=== PATIENT | female | born 1945 | race Caucasian/White ===

== ENCOUNTER 2019-09-16 13:04 | Outpatient (RCR) | payer MEDICARE, OTHER, SELFPAY | END 2019-09-29 00:01 | LOC: WOUND 13:04 | PROVIDERS: Family Provider Family Medicine; Visit Provider Nurse Practitioner Family | DX: I87.2 Venous insufficiency (chronic) (peripheral) (principal); L97.812 Non-pressure chronic ulcer of other part of right lower leg with fat layer exposed; I96 Gangrene, not elsewhere classified | CPT/HCPCS: 11042 ×2; 87070; 87077; 87176; 87186 ×3; 87205; G0463 ==

== ENCOUNTER 2019-10-21 08:13 | Outpatient (RCR) | payer MEDICARE, OTHER, SELFPAY | END 2019-10-30 23:59 | disposition home or self-care (01) | LOC: WOUND 08:13 | PROVIDERS: Family Provider Family Medicine; PCP Family Medicine; Visit Provider Nurse Practitioner Family | DX: I87.2 Venous insufficiency (chronic) (peripheral) (principal); L97.812 Non-pressure chronic ulcer of other part of right lower leg with fat layer exposed | CPT/HCPCS: 11042 ==

== ENCOUNTER → 2019-10-28 08:26 | Outpatient (BNVA) | payer MEDICARE, OTHER, SELFPAY | PROVIDERS: Family Provider Family Medicine; PCP Family Medicine; Referring Provider Surgery; Visit Provider Internal Medicine Rheumatology | DX: M19.90 Unspecified osteoarthritis, unspecified site (principal); M35.3 Polymyalgia rheumatica; L98.9 Disorder of the skin and subcutaneous tissue, unspecified; L98.492 Non-pressure chronic ulcer of skin of other sites with fat layer exposed; Z71.89 Other specified counseling | CPT/HCPCS: 99204; 99205 ==

== ENCOUNTER 2019-10-28 10:56 | Outpatient (CLI) | payer MEDICARE, OTHER, SELFPAY ==
--- NOTE | 2019-10-28 11:10 | XR_ITS ---
WS: [id number] LEFT HAND: 3 VIEW(S) TECHNIQUE: PA, oblique and lateral. HISTORY: inflammatory arthritis COMPARISON: None available. No acute fracture or dislocation. Very mild narrowing of the interphalangeal joints. No periarticular osteopenia. No subluxation or ero sions. XR/XR hand LT min 3V* [id number] IMPRESSION: Mild LEFT hand osteoarthritis.
--- NOTE | 2019-10-28 11:10 | XR_ITS ---
WS: [id number] RIGHT SHOULDER: 1 VIEW(S) TECHNIQUE: AP view HISTORY: inflammatory arthritis COMPARISON: None available. Very mild narrowing of the glenohumeral joint and AC joint. No erosions. No fracture. No dislocation. XR/XR shoulder RT 1V [id number] IMPRESSION: Mild AC joint and glenohumeral joint arthritis.
--- NOTE | 2019-10-28 11:10 | XR_ITS ---
WS: [id number] RIGHT FOOT: 3 VIEW(S) TECHNIQUE: PA, oblique and lateral. HISTORY: inflammatory arthritis COMPARISON: None available. No acute fracture or dislocation. Mild hallux valgus. Mild thickening of the fourth and fifth metatarsals, likely from old fractures. M ild subluxation at the second metatarsophalangeal joint space. Suspect early erosions involving the s econd metatarsal head. Hammertoe deformities. Moderate size calcaneal spur. XR/XR foot RT min 3V* [id number] IMPRESSION: 1. Hallux valgus. 2. Erosions at the second metatarsal head and mild subluxation at the second m etatarsophalangeal joint. Can be seen with inflammatory arthritis.
--- NOTE | 2019-10-28 11:10 | XR_ITS ---
WS: [id number] LEFT FOOT: 3 VIEW(S) TECHNIQUE: PA, oblique and lateral. HISTORY: inflammatory arthritis COMPARISON: None available. No acute fracture or dislocation. Erosion along the lateral second metatarsal head. Several hammertoe deformities. Moderate-sized calcaneal spur. XR/XR foot LT min 3V* [id number] IMPRESSION: Second metatarsal head erosion can be seen with inflammatory arthritis.
--- NOTE | 2019-10-28 11:10 | XR_ITS ---
WS: [id number] LEFT SHOULDER: 1 VIEW(S) TECHNIQUE: AP view. HISTORY: inflammatory arthritis COMPARISON: None available. No fracture or dislocation or soft tissue abnormality. Moderate narrowing of the AC joint with small hypertrophic osteophytes. Calcific density lateral to t he humeral head. Mild glenohumeral joint narrowing. Mild atherosclerosis aorta. XR/XR shoulder LT 1V [id number] IMPRESSION: 1. Osteoarthritis at the AC joint and glenohumeral joint. 2. Calcific tendinitis.
--- NOTE | 2019-10-28 11:10 | XR_ITS ---
WS: [id number] CHEST 2 VIEWS HISTORY: inflammatory arthritis COMPARISON: None available. Lungs: Clear with no abnormality. No pleural effusion or pneumothorax. Cardiac size: Normal. Mediastinum/Aorta: Mild atherosclerosis aorta. Benign granuloma noted on the lateral projection in th e anterior mediastinum. Bones: Mild increase in thoracic kyphosis and osteopenia. XR/XR chest 2V* [id number] IMPRESSION: No acute cardiopulmonary disease. Mild atherosclerosis aorta.
--- NOTE | 2019-10-28 11:10 | XR_ITS ---
WS: [id number] RIGHT HAND: 3 VIEW(S) TECHNIQUE: PA, oblique and lateral. HISTORY: inflammatory arthritis COMPARISON: None available. No acute fracture or dislocation. Mild to moderate interphalangeal joint space narrowing. Most significant involving the DIP joint of t he fifth finger. No periarticular osteopenia. No subluxation. No definite erosions. XR/XR hand RT min 3V* [id number] IMPRESSION: Changes most consistent with osteoarthritis at the interphalangeal joints.
== END 2019-10-28 10:57 | disposition home or self-care (01) ==
LOC: RADWPI 11:06
PROVIDERS: Family Provider Family Medicine; PCP Family Medicine; Visit Provider Internal Medicine Rheumatology
DX: M75.32 Calcific tendinitis of left shoulder (principal); M19.042 Primary osteoarthritis, left hand; M20.11 Hallux valgus (acquired), right foot; M85.872 Other specified disorders of bone density and structure, left ankle and foot; I70.0 Atherosclerosis of aorta
CPT/HCPCS: 71046; 73020; 73130; 73630

== ENCOUNTER 2019-11-12 08:32 | Outpatient (RCR) | payer MEDICARE, OTHER, SELFPAY | END 2019-11-28 23:59 | disposition home or self-care (01) | LOC: WOUND 08:32 | PROVIDERS: Family Provider Family Medicine; PCP Family Medicine; Visit Provider Nurse Practitioner Family | DX: I87.2 Venous insufficiency (chronic) (peripheral) (principal); L97.812 Non-pressure chronic ulcer of other part of right lower leg with fat layer exposed | CPT/HCPCS: 99215; G0463 ==

== ENCOUNTER → 2019-11-25 10:01 | Outpatient (BNVA) | payer MEDICARE, OTHER, SELFPAY | PROVIDERS: Family Provider Family Medicine; PCP Family Medicine; Visit Provider Internal Medicine Rheumatology | DX: M19.90 Unspecified osteoarthritis, unspecified site (principal); Z79.899 Other long term (current) drug therapy; Z11.59 Encounter for screening for other viral diseases | CPT/HCPCS: 85025 ==

== ENCOUNTER 2019-11-25 11:22 | Emergency (ER) | payer MEDICARE, OTHER, SELFPAY ==
[2019-11-25 11:26] VITALS: BP 152/84; PULSE 61; RESP 16; TEMP 37; O2SAT 98; BMI 28.3
--- NOTE | 2019-11-25 11:26 | ECG_ITS ---
Measurements Intervals [place] Rate: 53 P: 31 AK: 176 QRS: -32 QRSD: 108 T: 18 QT: 433 QTc: 410 SINUS BRADYCARDIA LEFT AXIS DEVIATION [QRS AXIS < -30] PATTERN CONSISTENT WITH PULMONARY DISEASE MODERATE VOLTAGE CRITERIA FOR LVH, CONSIDER NORMAL VARIANT [MEETS CRITERIA IN ON ONE OF: R(aVL), S(V1), R(V5), R(V5/V6)+S(V1)] No previous ECG available for comparison Electronically Signed On 11-25-2019 15:18:56 LEAD LAYING AND GLUING MACHINE OPERATOR by Avelino Mcwilliams M.D. [email or web address] praveena
--- NOTE | 2019-11-25 11:41 | ED_ITS ---
Entered by [id number], acting as scribe for Triny Connor MD Nov 25, 2019 11:22 HPI - General Adult General: Chief complaint: Shortness of Breath/Dyspnea Stated complaint: SYNCOPE/SEIZURE Time Seen by Provider: 11/25/19 11:41 PFS ED PFSH: Medical History (Updated 10/29/19 @ 00:03 by Wei Hare MD) CVA (cerebral vascular accident) Immunization counseling Inflammatory arthritis PMR (polymyalgia rheumatica) Skin lesion Skin ulcer Surgical History History of hysterectomy Social History Smoking and tobacco status: never smoked Alcohol intake: never Course Vital Signs: Vital signs: Vital Signs Temperature 98.6 F 11/25/19 11:26 Pulse Rate 61 11/25/19 11:26 Respiratory Rate 16 11/25/19 11:26 Blood Pressure 152/84 11/25/19 11:26 Pulse Oximetry 97 11/25/19 11:44 MDM - General Adult Lab Data: Labs: Lab Results 11/25/19 11/25/19 Range/Units 11:15 11:15 WBC 8.2 (4.0-10.0) 10^3/ uL RBC 4.60 (4.1-5.3) 10^6/u L Hgb 14.1 (11.5-15.3) g/dL Hct 43.5 (37.0-47.0) % MCV 94.6 (81-99) fL MCH 30.7 (28.0-34.0) pg MCHC 32.4 (30.0-36.0) g/dL RDW 13.2 (12.1-15.1) % Plt Count 312 (130-400) 10^3/c mm MPV 9.7 (7.4-10.4) fL Sodium 137 (136-145) mmol/L Potassium 3.9 (3.5-5.1) mmol/L Chloride 101 (98-107) mmol/L Carbon Dioxide 23 (22-29) mmol/L Anion Gap 16.9 (5-19) BUN 12 (8-23) mg/dL Creatinine 0.8 (0.5-0.9) mg/dL Glucose 99 (65-115) mg/dL Calcium 10.2 (8.5-10.5) mg/dL Total Bilirubin 0.4 (0.15-1.2) mg/dL AST 16 (0-32) U/L ALT 16 (0-33) U/L Alkaline Phosphata se 77 (35-105) IU/L Total Protein 7.2 (6.6-8.7) g/dL Albumin 4.3 (3.5-5.2) g/dL Globulin 2.9 (1.3-4.6) g/dL Discharge Plan Discharge Prescriptions: No Action prednisone 10 mg tablet 10 mg PO QDAY Qty: 30 RF: 0 methylprednisolone 32 mg tablet 32 mg PO DAILY RF: 0 doxepin 10 mg Capsule 10 mg PO Q8H PRN (Reason: Itching) RF: 0 Coding Level of Care Code ED Hotbed Operator for Chg Fwd The documentation recorded by the jojoibbessy, [id number], accurately reflects the service I personally performed and the decisions made by Nikolas julio Megan, MD Nov 25, 2019 11:22
--- NOTE | 2019-11-25 11:42 | ED_ITS ---
Entered by Mena Boudreaux, acting as scribe for Triny Connor MD HPI - General Adult General: Chief complaint: Shortness of Breath/Dyspnea Stated complaint: SYNCOPE/SEIZURE Time Seen by Provider: 11/25/19 11:41 Source: patient, family and EMS Mode of arrival: EMS Limitations: no limitations History of Present Illness: HPI narrative: 74 yo female presents with syncope episode. pt states she has had the flu the past few days. pt was at the Rheumatology clinic getting her blood drawn When she passed out while sitting and her head slumped to the side. witnessed it. No injury from this. complaint: syncope Onset (ago): hour(s) (just scow captain) Radiation: non-radiation Severity: moderate Pain Consistency: constant Relieving factors: none Exacerbating factors: other (when they was taking blood at Rheumatology Clinic) Associated symptoms: Reports nausea, rash (for a year), short of breath, syncope and weakness; Deny dyspnea or headache(s) Treatments prior to arrival: other (fluids by EMS) Review of Systems General: Reports: 10 or more systems reviewed and unremarkable except in HPI and below Const: Denies: fever or chills Eyes: Denies: change in vision ENMT: Denies: throat pain Card: Reports: syncope Resp: Denies: shortness of breath GI: Reports: nausea : Denies: difficulty urinating Musc: Denies: muscle weakness Skin/Breast: Reports: rash (for a year) Neuro: Denies: headache Psych: Denies: hopelessness or suicidal ideation Endo: Denies: excessive urination Sumanth/Lymph: Denies: easy bruising or easy bleeding All/Imm: Denies: hives [facility] ED PFSH: Medical History (Updated 11/25/19 @ 13:17 by Triny Connor MD) CVA (cerebral vascular accident) Immunization counseling Inflammatory arthritis PMR (polymyalgia rheumatica) Skin lesion Skin ulcer Surgical History History of hysterectomy Social History Smoking and tobacco status: never smoked Alcohol intake: never Physical Exam Const: COMMON NORMALS: no apparent distress, average body habitus, oriented x3, no limitations, healthy appearing, alert and well nourished HENMT: COMMON NORMALS: normocephalic, external ears normal and external nose normal HEAD & SCALP: normocephalic NOSE: external nose normal EXTERNAL EAR: Yes external ears normal MOUTH: oral and palatal mucosa normal THROAT: posterior oropharynx normal Eye: COMMON NORMALS: PERRL, EOMs intact bilaterally, conjunctivae normal and no scleral icterus CONJUNCTIVA: Yes conjunctivae normal PUPIL: Yes PERRL Neck/C-Spine: COMMON NORMALS: full ROM, no lymphadenopathy, supple, no meningeal signs and no JVD CERVICAL SPINE: Yes cervical ROM normal Lymph: LYMPHATIC: no lymphadenopathy noted Chest: COMMONS NORMALS: inspection of chest normal Resp: COMMON NORMALS: normal respiratory effort, no retractions, no use of accessory muscles and clear to auscultation bilaterally AUSCULTATION: clear to auscultation bilaterally Cardio: COMMON NORMALS: no JVD, regular rate, regular rhythm, no gallops, no clicks, no murmurs and no rub RATE: regular rate RHYTHM: regular rhythm GI: COMMON NORMALS: normal to inspection, nondistended, normoactive bowel sounds, soft to palpation and non-tender AUSCULTATION: Yes normoactive bowel sounds PALPATION: Yes soft : COMMON NORMALS: Yes no CVA tenderness BLADDER/KIDNEY EXAM: Yes no CVA tenderness Back/Pelvis: COMMON NORMALS: no CVA tenderness Extremity: COMMON NORMALS: normal to inspection Neuro: COMMON NORMALS: oriented x3 SENSORIUM/ORIENTATION: Yes alert MENINGEAL SIGNS: Yes no meningeal signs SPEECH: speech normal Psych: COMMON NORMALS: mental status grossly normal, thought process normal, cooperative, affect normal, speech normal, activity/motor behavior normal, denies hallucinations, denies homicidal ideation and denies suicidal ideation SPEECH: Yes normal speech THOUGHT PROCESS: normal thought process Course Vital Signs: Vital signs: Vital Signs Temperature 98.6 F 11/25/19 11:26 Pulse Rate 61 11/25/19 11:26 Respiratory Rate 16 11/25/19 11:26 Blood Pressure 152/84 11/25/19 11:26 Pulse Oximetry 97 11/25/19 11:44 MDM - General Adult MDM Narrative: Medical decision making narrative: Patient is feeling much better after a liter of IV fluids wants to go home. Reviewed labs hemoglobin is great at over 14. Lab Data: Labs: Lab Results 11/25/19 11/25/19 Range/Units 11:15 11:15 WBC 8.2 (4.0-10.0) 10^3/ uL RBC 4.60 (4.1-5.3) 10^6/u L Hgb 14.1 (11.5-15.3) g/dL Hct 43.5 (37.0-47.0) % MCV 94.6 (81-99) fL MCH 30.7 (28.0-34.0) pg MCHC 32.4 (30.0-36.0) g/dL RDW 13.2 (12.1-15.1) % Plt Count 312 (130-400) 10^3/c mm MPV 9.7 (7.4-10.4) fL Sodium 137 (136-145) mmol/L Potassium 3.9 (3.5-5.1) mmol/L Chloride 101 (98-107) mmol/L Carbon Dioxide 23 (22-29) mmol/L Anion Gap 16.9 (5-19) BUN 12 (8-23) mg/dL Creatinine 0.8 (0.5-0.9) mg/dL Glucose 99 (65-115) mg/dL Calcium 10.2 (8.5-10.5) mg/dL Total Bilirubin 0.4 (0.15-1.2) mg/dL AST 16 (0-32) U/L ALT 16 (0-33) U/L Alkaline Phosphata se 77 (35-105) IU/L Total Protein 7.2 (6.6-8.7) g/dL Albumin 4.3 (3.5-5.2) g/dL Globulin 2.9 (1.3-4.6) g/dL EKG Data^: EKG 1: Attestation: I personally reviewed and interpreted this EKG as follows: EKG interpretation date: 11/25/19 EKG interpretation time: 12:03 Interpretation: Sinus bradycardia rate 53 left axis deviation, nonspecific ST changes Discharge Plan Discharge Patient Disposition: Home, Self-Care Clinical Impression: Syncope Qualifiers: Syncope type: unspecified Qualified Code(s): R55 - Syncope and collapse Condition: Stable Prescriptions: No Action prednisone 10 mg tablet 10 mg PO QDAY Qty: 30 RF: 0 methylprednisolone 32 mg tablet 32 mg PO DAILY RF: 0 doxepin 10 mg Capsule 10 mg PO Q8H PRN (Reason: Itching) RF: 0 Referrals: Jr Sandhu [Primary Care Provider] - Patient Instructions: Syncope (ED) Coding Level of Care Code ED Vice President Talent Management for Chg Fwd Exam Comprehensive The documentation recorded by the Janusz sage Bridget Annette, accurately reflects the service I personally performed and the decisions made by me, Triny Connor MD
[2019-11-25 11:44] VITALS: O2SAT 97
[2019-11-25 13:05] LABS: Hematocrit 43.5 % (37.0-47.0); Hemoglobin 14.1 g/dL (11.5-15.3); Mean Corpuscular HGB Conc 32.4 g/dL (30.0-36.0); Mean Corpuscular Hemoglobin 30.7 pg (28.0-34.0); Mean Corpuscular Volume 94.6 fL (81-99); Mean Platelet Volume 9.7 fL (7.4-10.4); Platelet Count 312 10^3/cmm (130-400); Red Cell Distribution Width 13.2 % (12.1-15.1); White Blood Count 8.2 10^3/uL (4.0-10.0)
[2019-11-25 13:10] LABS: Alanine Aminotransferase 16 U/L (0-33); Albumin Level 4.3 g/dL (3.5-5.2); Alkaline Phosphatase 77 IU/L (35-105); Anion Gap 16.9 (5-19); Aspartate Amino Transferase 16 U/L (0-32); Blood Urea Nitrogen 12 mg/dL (8-23); Calcium 10.2 mg/dL (8.5-10.5); Carbon Dioxide 23 mmol/L (22-29); Chloride 101 mmol/L (98-107); Globulin 2.9 g/dL (1.3-4.6); Glucose 99 mg/dL (65-115); Potassium 3.9 mmol/L (3.5-5.1); Sodium 137 mmol/L (136-145); Total Bilirubin 0.4 mg/dL (0.15-1.2); Total Protein 7.2 g/dL (6.6-8.7)
[2019-11-25 13:25] LABS: Absolute Segmented Neutrophil 4.8 10/cmm (1.6-7.1); Band Neutrophils Absolute 0.1 10^3/cmm (0.0-1.2); Lymphocytes 32 %; Monocytes Absolute 0.7 10^3/cmm (0.1-0.6); Platelet Estimate Normal (Normal); Segmented Neutrophils 59 %; Total Cells Counted 100 (0-100)
[2019-11-25 13:39] VITALS: BP 146/70; PULSE 75; RESP 17; O2SAT 97
== END 2019-11-25 13:39 | disposition home or self-care (01) ==
PROVIDERS: Emergency Provider Emergency Medicine; Family Provider Family Medicine; PCP Family Medicine
DX: R06.02 Shortness of breath (principal); R55 Syncope and collapse; R56.9 Unspecified convulsions; Z86.73 Personal history of transient ischemic attack (TIA), and cerebral infarction without residual deficits
CPT/HCPCS: 80053; 80076; 82565; 82595; 83516; 85007; 85027; 85651; 86140; 86431; 86480; 86704; 86812; 87517; 93005; 99283

== ENCOUNTER → 2019-12-07 12:36 | Outpatient (BNVA) | payer MEDICARE, OTHER, SELFPAY | PROVIDERS: Family Provider Family Medicine; PCP Family Medicine; Visit Provider Internal Medicine Rheumatology | DX: M05.9 Rheumatoid arthritis with rheumatoid factor, unspecified (principal); R76.8 Other specified abnormal immunological findings in serum; Z79.899 Other long term (current) drug therapy; Z79.52 Long term (current) use of systemic steroids; L98.9 Disorder of the skin and subcutaneous tissue, unspecified; L98.492 Non-pressure chronic ulcer of skin of other sites with fat layer exposed | CPT/HCPCS: 99214 ==